=== PATIENT | female | born 1980 | race Caucasian/White ===

== ENCOUNTER 2016-12-12 06:05 | Inpatient (IN) | payer MEDICAID, OTHER ==
--- NOTE | 2016-12-07 23:34 | PREOPHP ---
DATE OF ADMISSION: 12/12/2016 REASON FOR ADMISSION: The patient is coming on 12/13/2015 for a hysterectomy. HISTORY OF PRESENT ILLNESS: This is a 36-year-old female 2, para 2 with 2 previous sections, hysteroscopy with an attempted ablation, pelviscopy, tubal ligation, D and C again for ex cessive bleeding, and she had bilateral salpingectomy. This patient has been suffering from fibroid uterus, intractable pelvic pain, intractable bleeding, and a large fibroid uterus. She underwent a pelviscopy that revealed that she has fibroids and endometriosis as well, very boggy uterus, and hy drosalpinx that were removed. The patient had both tubes removed because of large hematometra and a denomyosis and bilateral hydrosalpinx. She still continues with excessive bleeding. The patient maradiaga s also, on top of that, severe pelvic pain that interferes with her sexual life and she has been raphael ble to have sex due to pain. The patient was not able to take CONTROL PILLS SINCE SHE HAS INT OLERANCE TO THAT and she will not keep an IUD. She had also difficulties with the IUD before. She is requesting for more permanent treatment of her bleeding and pain. She was advised for a hysterec triston since she had no means of getting . She did not want to have any more children. That is why she had her tubal ligation and she is adamant about having a hysterectomy. ALLERGIES: THE PATIENT WAS ALLERGIC TO PENICILLIN. PAST MEDICAL HISTORY: She, on her past history, had the Depo shot several times to try to control h er bleeding with intolerance to that as well. She would not go on Lupron because she knows the prob ruthann will come back. The patient has been anemic ____ with her normal life due to the problems of an emia and heavy bleeding she is constantly fearing her next period. The patient is advised for a tot al abdominal hysterectomy. REVIEW OF SYSTEMS: Negative for cardiovascular disease. Negative for heart disease, lung disease, GI, endocrine disease. SOCIAL HISTORY: She has no history of drugs. She does not drink or smoke. FAMILY HISTORY: Noncontributory. MEDICATIONS: She is on vitamins and Microgestin and a recent Depo shot. PHYSICAL EXAMINATION: VITAL SIGNS: The patient is 5 feet 3 inches. She weighs 164. Her blood pressure is 120/80. HEAD AND NECK: Normal. CHEST: Clear. HEART: Normal sinus rhythm. LUNGS: Clear. BREASTS: Soft, nontender. No masses. ABDOMEN: Soft, nontender. No masses. PELVIC: Uterus with adenomyosis and fibroids, very painful, very difficult to evaluate. Adnexae ar e nonpalpable. Uterus with motion tenderness. RECTAL: Negative. VASCULAR: The pulses are normal. EXTREMITIES: Normal. DIAGNOSES: 1. Intractable pelvic pain and bleeding. 2. Large fibroid uterus. 3. Adenomyosis. 4. Anemia. 5. Previous sections x2. PLAN: She is undergoing a total abdominal hysterectomy. She has been advised of the possible risks and possible complications of the procedure with her alternatives and options. Written information was provided. She had no more questions and agreed to go ahead with the procedure with full unders tanding and no more questions. Dictated By: LUIS ENRIQUE TUCKER/ISREAL Conf#: [id number] DID#: [id number]
[~2016-12-12] VITALS: Ht 160 cm; Wt 73.6 kg
[2016-12-12] VITALS (21 sets, daily range): BP systolic 109–122; BP diastolic 57–72; PULSE 68–96; RESP 11–24; Ht 160 cm; Wt 73.6 kg
[~2016-12-12 06:05] MED LIST: ACET500T98 PO; CLINDAMYCIN 900 MG/D5W (PMX) 50 ML IVPB ONE; IBUP200C11 PO; NORG1TAB54 PO
[2016-12-12] MEDS ORDERED: ROCURONIUM 50 MG INJ ONE (07:38)
[2016-12-12] MEDS ORDERED: morphine SULFATE/PF (10 MG/10 ML) INJ ONE (07:38)
[2016-12-12] MEDS ORDERED: MIDAZOLAM 1 MG/ML 2 ML INJ ONE (07:38)
[2016-12-12] MEDS ORDERED: PROPOFOL 20 ML ONE (07:38)
[2016-12-12] MEDS ORDERED: LIDOCAINE 1% (MDV) 20 ML INJ ONE (07:39)
[2016-12-12] MEDS ORDERED: FENTAnyl 50 MCG/ML VIAL ONE (07:44)
--- NOTE | 2016-12-12 08:06 | HPN ---
Date/Time of Note Date/Time of Note DATE: 12/12/16 TIME: 08:02 Interval H&P Admission Note Pt. seen H&P reviewed: No system changes LUIS ENRIQUE SCHMIDT MD December 12, 2016 08:06
[2016-12-12] MEDS ORDERED: EPHEDrine SULFATE 50 MG/5 ML SYG ONE (08:39)
[2016-12-12] MEDS ORDERED: DEXAMETHASONE 4 MG/ML 1 ML INJ ONE (08:52)
[2016-12-12] MEDS ORDERED: ONDANSETRON 4 MG INJ ONE (08:52)
[2016-12-12] MEDS ORDERED: FAMOTIDINE 20 MG INJ ONE (08:52)
[2016-12-12] MEDS ORDERED: HYDROmorphONE 1 MG/ML SYG IV PRN ×2 (09:00)
[2016-12-12] MEDS ORDERED: PROCHLORPERAZINE 10 MG INJ IV PRN (09:00)
[2016-12-12] MEDS ORDERED: HYDROmorphONE (0.2 MG/ML) 10ML SYG IV PRN (09:00)
[2016-12-12] MEDS ORDERED: ZOLPIDEM 5 MG TAB PO PRN ×2 (09:00→10:30)
[2016-12-12] MEDS ORDERED: MEPERIDINE 25 MG INJ IV PRN (09:00)
[2016-12-12] MEDS ORDERED: ONDANSETRON 4 MG INJ IV PRN ×3 (09:00→10:30)
[2016-12-12] MEDS ORDERED: NALOXONE (0.4 MG/ML) INJ IV PRN (09:00)
[2016-12-12] MEDS ORDERED: KETOROLAC 30 MG INJ IV PRN (09:00)
[2016-12-12] MEDS ORDERED: DIPHENHYDRAMINE 50 MG INJ IV PRN ×2 (09:00)
[2016-12-12] MEDS ORDERED: GLYCOPYRROLATE 0.4 MG INJ ONE (10:15)
[2016-12-12] MEDS ORDERED: NEOSTIGMINE 3 MG/3 ML SYRINGE ONE (10:15)
[2016-12-12] MEDS ORDERED: DIPHENHYDRAMINE 50 MG CAP PO PRN (10:30)
[2016-12-12] MEDS ORDERED: BISACODYL (EC) 5 MG TAB PO PRN (10:30)
[2016-12-12] MEDS ORDERED: HYDROCODONE/APAP (5/325) TAB PO PRN (10:30)
--- NOTE | 2016-12-12 10:48 | OPR ---
Date/Time of Note Date/Time of Note DATE: 12/12/16 TIME: 10:42 Operative Report Procedure Date: December 12, 2016 Preoperative Diagnosis INTRACTABLE MENOMETRORRHAGIA AND PELVIC PAIN FIBROID UTERUS ADENOMYOSIS Postoperative Diagnosis SAME PLUS PELVIC ADHESIONS Operation Performed JL LYSIS OF ADHESIONS Surgeon: LUIS ENRIQUE SCHMIDT MD Bus Boy: JORGE DELA CRUZ MD Anesthesia: general Anesthesiologist: RANDI IBRAHIM DO Estimated Blood Loss: 100 - 150 ml's Specimens UTERUS Tubes/Drains JOSY DRAIN Complications: None Pt Condition Post Procedure: stable Disposition: PACU LUIS ENRIQUE SCHMIDT MD December 12, 2016 10:48
[2016-12-12] MEDS: KETOROLAC 30 MG INJ IV SCH ×3 (11:06→22:00)
--- NOTE | 2016-12-12 11:26 | OPR ---
DATE OF OPERATION: 12/12/2016 PROCEDURE: 1. Total abdominal hysterectomy. 2. Lysis of adhesions. PREOPERATIVE DIAGNOSES: 1. Intractable menometrorrhagia. 2. Intractable pelvic pain. 3. Fibroid uterus of adenomyosis of the uterus. POSTOPERATIVE DIAGNOSES: 1. Intractable menometrorrhagia. 2. Intractable pelvic pain. 3. Fibroid uterus of adenomyosis of the uterus. 4. Pelvic adhesions. PROCEDURE DONE: 1. Total abdominal hysterectomy. 2. Lysis of adhesions. SURGEON: Luis Enrique Morris MD CENTER MGR: Jag Ivan MD ANESTHESIA: Terrance Calhoun DO BLOOD LOSS: 100 mL. COMPLICATIONS: None. PROCEDURE: The patient was given spinal and Duramorph anesthesia and general anesthesia, placed in the supine position. A Medina catheter was placed in the bladder. The abdomen was prepped and drape d and a transverse incision going through the previous old scar from the was made. The ab domen was opened in layers without difficulties. The abdominal cavity was reached. The omentum was adherent with adhesions that were lysed with [id number] sutures with pop-off 0-Vicryl. The om entum was from the anterior abdominal wall. The exploration of the pelvic area revealed t hat the uterus was very boggy with a fibroid of the possible 6 cm and very boggy appearance of the u terus with adenomyosis. In the surface of the uterus there were adhesions, possibly from endometrio sis and possibly from PID as well. Both tubes were absent from removal of the tubes through the pel viscopy done before and both ovaries were normal. The self-retaining retractor was placed and the L ahey was used to grab the uterus. The uterus was removed slowly by using bipolar instrument with a LigaSure to the round ligaments to the ovarian ligament and the uterine vessels. The anterior broad ligament was incised and the bladder flap was made, lysing the adhesion of the uterus to the bladde r that was intense and very severe. The bladder was pushed down. At this level, the uterine vessel s were cauterized with the LigaSure and a straight Rahat's and a straight Heaneys were used to get the cardinal ligaments and uterosacral ligaments. An incision was done in both sides and figure-of- eight sutures with #1 Vicryl with good hemostasis. The sutures were held. At this time, the Metzenbaum was used with the Nunez scissors to incise the vaginal cuff and with the Zaida scissors, the uterus was removed and the cervix. The corners of the vagina were held and the whole vagina was closed with [id number]-[id number] sutures to the corners and interrupted sutures wit h #1 Vicryl and hemostasis was good. The cavity was looked at under water and there was no active b leeding. The ureters were tacked down with good peristalsis and away from our stumps of sutures. T he bottom of the bladder was cauterized as well for some venous bleeding and a piece of Surgicel was left in there. Both ovaries were covered with Interceed for prevention of adhesions and the perito neum was closed with a 2-0 Vicryl suture. The fascia was closed with PDS looped suture. We left a drain because of the thickness of the subcutaneous tissue that was thick to prevent the seroma forma tion. The John drain was placed, making a small incision on the left side 5 cm up above the corner of the incision with a knife. The incision was made and a clamp was used to bring the tube out. T he tube was fixed to the skin with a single stitch with 2-0 nylon. The piece of EpiFix, which is pl acental tissue that is being used for healing was left just underneath the area of the skin for good healing. The approximation of the subcutaneous tissue was done without stitches and the subq was w ith no active bleeding. The skin was closed with 3-0 Monocryl subcuticular stitch. Steri-Strips were applied with Dermabond and the patient tolerated the procedure well and left the OR awake and stable. Sponge counts, inst rument counts were correct. Intravenous antibiotics were given for prophylaxis. Blood loss was min imal. The urine was clear at the end of the procedure. Dictated By: LUIS ENRIQUE TUCKER/ISREAL Conf#: [id number] DID#: [id number]
[2016-12-12] MEDS: HYDROmorphONE 1 MG/ML SYG IV PRN (11:28)
[2016-12-12] MEDS: METOCLOPRAMIDE 10 MG TAB PO SCH ×2 (14:14→17:15)
[2016-12-12] MEDS: LACTATED RINGER'S 1,000 ML IV SCH ×2 (14:15→18:22)
[2016-12-12] MEDS: CLINDAMYCIN 600 MG/D5W (PMX) 50 ML IVPB SCH ×2 (14:24→17:13)
[2016-12-13] MEDS: LACTATED RINGER'S 1,000 ML IV SCH ×4 (00:17→20:54)
[2016-12-13] MEDS: CLINDAMYCIN 600 MG/D5W (PMX) 50 ML IVPB SCH ×4 (00:17→17:40)
[2016-12-13] MEDS: METOCLOPRAMIDE 10 MG TAB PO SCH ×4 (00:18→17:38)
[2016-12-13 05:21] LABS: ADD SCAN DIFF NO
[2016-12-13] MEDS: KETOROLAC 30 MG INJ IV SCH ×4 (05:21→22:28)
[2016-12-13 05:32] LABS: BASOPHILS % 0.2 % (0.0-2.0); HEMOGLOBIN 9.9 g/dl (12.0-16.0); LYMPHOCYTES % 10.7 % (15.0-51.0); MEAN CORPUSCULAR HEMOGLOBIN 26.6 pg (29.0-33.0); MEAN CORPUSCULAR HGB CONC 31.9 g/dl (32.0-37.0); MEAN CORPUSCULAR VOLUME 83.3 fl (82.0-101.0); MEAN PLATELET VOLUME 10.6 fl (7.4-10.4); MONOCYTE # 0.8 10^3/ul (0.3-0.9); NEUTROPHIL # 7.2 10^3/ul (1.6-7.5); NEUTROPHILS % 79.9 % (39.0-77.0); PLATELET COUNT 285 10^3/UL (140-415); RED BLOOD COUNT 3.72 10^6/ul (4.20-5.40); RED CELL DISTRIBUTION WIDTH 18.9 % (11.5-14.5)
[2016-12-13 05:44] LABS: POTASSIUM 3.8 mmol/L (3.5-5.1)
[2016-12-13 05:46] LABS: CREATININE 0.49 mg/dl (0.44-1.00)
[2016-12-13 07:54] VITALS: BP 96/55; RESP 17
[2016-12-13] MEDS: HYDROCODONE/APAP (5/325) TAB PO PRN (09:50)
--- NOTE | 2016-12-13 19:19 | QN ---
Documentation Comment POD #1 Pt is doing well and is good spirits. Ambulating, slowly but surely. Pain management is excellent. Afebrile. VSS. Abdomen soft,non-distended. Incision is clean, dry and intact. Drain with a small amount of dark blood. Ext: NT, no edema. P: Advance diet to regular as she is on a soft diet right now. Continue to encourage ambulation. JORGE DELA CRUZ MD December 13, 2016 19:19
[2016-12-13 20:15] VITALS: BP 114/74; RESP 18
[2016-12-13] MEDS: HYDROmorphONE 1 MG/ML SYG IV PRN (20:54)
[2016-12-14] MEDS: METOCLOPRAMIDE 10 MG TAB PO SCH ×5 (01:01→23:56)
[2016-12-14] MEDS: CLINDAMYCIN 600 MG/D5W (PMX) 50 ML IVPB SCH ×5 (01:01→23:56)
[2016-12-14] MEDS: HYDROCODONE/APAP (5/325) TAB PO PRN ×2 (01:08→08:39)
[2016-12-14] MEDS: KETOROLAC 30 MG INJ IV SCH ×4 (05:11→22:54)
[2016-12-14] MEDS: LACTATED RINGER'S 1,000 ML IV SCH ×3 (06:00→14:55)
[2016-12-14 07:40] VITALS: BP 102/57; RESP 16
[2016-12-14 22:07] VITALS: BP 133/75; RESP 20
[2016-12-14] MEDS: ACETAMINOPHEN 325 MG TAB PO PRN (23:13)
--- NOTE | 2016-12-14 23:49 | QN ---
Documentation Comment POD #2 Pt has good pain control but had a low grade temperature today and is sweating now. Pt received 3 doses of Cleocin post-op and has a drain in now. +flatus and is tolerating a regular diet. T=99.4 BP 133/75 Abdomen soft, NT, non-distended. Incision is clean dry and intact. Drain with bulb with a small amount of clear serosanguinous fluid. No evidence of infection. Extremities non-tender, no edema. A: POD #2 s/p JL. Still has ovaries. Low grade temperature. P: CBC with diff., Chem 7, U/A and culture in AM. Encourage ambulation. Pt had a greater than average amount of antibiotics post-operatively so shouldn' t need more. Bolus 500 cc extra fluid. JORGE DELA CRUZ MD December 14, 2016 23:49
[2016-12-15] MEDS: LACTATED RINGER'S 1,000 ML IV SCH ×2 (04:14→10:22)
[2016-12-15] MEDS: KETOROLAC 30 MG INJ IV SCH (04:26)
[2016-12-15 04:57] LABS: ADD SCAN DIFF NO
[2016-12-15 05:06] LABS: HEMOGLOBIN 10.9 g/dl (12.0-16.0); MEAN CORPUSCULAR HEMOGLOBIN 25.8 pg (29.0-33.0); MEAN CORPUSCULAR HGB CONC 31.1 g/dl (32.0-37.0); MEAN CORPUSCULAR VOLUME 82.7 fl (82.0-101.0); MEAN PLATELET VOLUME 9.9 fl (7.4-10.4); PLATELET COUNT 275 10^3/UL (140-415); RED BLOOD COUNT 4.23 10^6/ul (4.20-5.40); RED CELL DISTRIBUTION WIDTH 19.2 % (11.5-14.5); WHITE BLOOD COUNT 14.6 10^3/ul (4.8-10.8)
[2016-12-15 05:19] LABS: CALCIUM 9.2 mg/dl (8.4-10.2); CREATININE 0.52 mg/dl (0.44-1.00); POTASSIUM 3.3 mmol/L (3.5-5.1)
[2016-12-15] MEDS: CLINDAMYCIN 600 MG/D5W (PMX) 50 ML IVPB SCH ×2 (05:24→12:20)
[2016-12-15] MEDS: METOCLOPRAMIDE 10 MG TAB PO SCH ×2 (05:25→12:20)
[2016-12-15] MEDS ORDERED: LACTATED RINGER'S 500 ML IV ONE (06:00)
[2016-12-15 08:42] VITALS: BP 106/58; RESP 17
[2016-12-15 12:14] LABS: OVALOCYTES OCCASIONAL
[2016-12-15 12:15] LABS: LYMPHOCYTES # 0.4 10^3/ul (0.8-2.9); MONOCYTE # 0.1 10^3/ul (0.3-0.9); NEUTROPHIL # 12.7 10^3/ul (1.6-7.5)
[2016-12-15] MEDS: ACETAMINOPHEN 325 MG TAB PO PRN (12:29)
[2016-12-15] MEDS ORDERED: POTASSIUM CHLORIDE (SR) 10 MEQ TAB PO SCH (13:15)
[2016-12-15 13:51] LABS: ADD UMIC YES; URINE BILIRUBIN (Dip) NEGATIVE (NEGATIVE); URINE BLOOD (Dip) 3+ (NEGATIVE); URINE COLOR LT. YELLOW (YELLOW); URINE GLUCOSE (Dip) NEGATIVE (NEGATIVE); URINE KETONES (Dip) 40 (NEGATIVE); URINE LEUKOCYTE ESTERASE (Dip) NEGATIVE (NEGATIVE); URINE NITRITE (Dip) NEGATIVE (NEGATIVE); URINE TOTAL PROTEIN (Dip) 1+ (NEGATIVE); URINE UROBILINOGEN (Dip) 0.2 E.U./dL (0.1-1.0)
[2016-12-15 14:14] LABS: SQUAMOUS EPITHELIAL CELL,UR FEW; URINE RBCS >50 /HPF (0)
--- NOTE | 2016-12-15 15:00 | PD.PPDC ---
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
--- NOTE | 2016-12-15 18:21 | DS ---
DATE OF ADMISSION: 12/12/2016 DATE OF DISCHARGE: 12/15/2016 PREOPERATIVE DIAGNOSIS: Intractable pelvic pain and bleeding. POSTOPERATIVE DIAGNOSES: With fibroid uterus, adenomyosis of the uterus, and endometrial polyps, be nign. HISTORY: This is a 36-year-old female 2, para 2, with 2 previous sections, and hys teroscopy with attempted ablation pelviscopy and tubal ligation, D and C. Had been seeing me before for bilateral salpingectomy due to large hydrosalpinx. This patient was advised for a hysterectomy due to fibroid that was intractable for pelvic pain and bleeding with growing fibroids, anemia, and she had been treated medically without success. The patient underwent an exploratory laparotomy wi [facility] and the pathology findings were benign. The patient did well after surgery and her laborator y testing showed a hemoglobin of 10.9, hematocrit of 35. She had been given antibiotics due to a mi ld UTI that was treated preop and she was to finish her antibiotics at home. She had no complaints. She had incisional drainage that was removed at the time of discharge. She had a clean incision. She had been ambulatory, passing gases with bowel movement, voiding well, eating well, and she had no complaints and she had no problems. She wanted to go home. She was discharged stable in good co ndition with instructions of what to do and not to do at home, to take ibuprofen and Delta p.r.n., a nd also to call if she had any problems. Otherwise, she will see me in the office in 3 days for elsie ckup on her incision. The patient was stable in good condition. FINAL DIAGNOSES: 1. Fibroid uterus. 2. Intractable pelvic pain and bleeding. 3. Adenomyosis of the uterus. 4. Anemia. Dictated By: LUIS ENRIQUE TUCKER/NTS Conf#: [id number] DID#: [id number]
== END 2016-12-15 17:38 | disposition home or self-care (01) | DRG 742 ==
LOC: REC 06:05 → PP2 13:19
PROVIDERS: ADMIT Obstetrics & Gynecology; ATTEND Obstetrics & Gynecology
PROC: 0UTC0ZZ Resection of Cervix, Open Approach (ICD-10-PCS; 2016-12-12)
PROC: 0UN90ZZ Release Uterus, Open Approach (ICD-10-PCS; 2016-12-12)
PROC: 3E0P05Z Introduction of Adhesion Barrier into Female Reproductive, Open Approach (ICD-10-PCS; 2016-12-12)
PROC: 0UT90ZZ Resection of Uterus, Open Approach (ICD-10-PCS; principal; 2016-12-12 07:30)
DX: D25.1 Intramural leiomyoma of uterus (principal); N39.0 Urinary tract infection, site not specified; N80.0 Endometriosis of uterus; N92.1 Excessive and frequent menstruation with irregular cycle; N73.6 Female pelvic peritoneal adhesions (postinfective); D64.9 Anemia, unspecified
CPT/HCPCS: 80048; 80051; 81001; 81003; 82565; 84520; 85025; 86850; 86900; 86901; 86920; 87086; 88305; J1100; J1170; J1885; J2250; J2274; J2405; J2710; J3010; J7120; Q4131

== ENCOUNTER 2016-12-26 19:50 | Emergency (ER) | payer OTHER ==
[~2016-12-26] VITALS: Ht 160 cm; Wt 73.0 kg
[~2016-12-26 19:50] MED LIST changes: -CLINDAMYCIN 900 MG/D5W (PMX) 50 ML IVPB ONE
[2016-12-26 20:16] VITALS: Ht 160 cm; Wt 73.0 kg
--- NOTE | 2016-12-26 21:31 | ERD ---
ER Documentation Chief Complaint Date/Time DATE: 12/26/16 TIME: 21:29 Chief Complaint procedure done 2 weeks ago, fever x 2 days; pain at the incision site HPI This 36-year-old female presents to the emergency department with fever, abdominal pain, and foul-smelling vaginal discharge. Patient is status post hysterectomy here at [facility] 2 weeks ago. Patient reports fever started 2 days ago. T-max 102.0 yesterday using ibuprofen last taken at 1400. Patient states she has been using her 800 mg ibuprofen that was prescribed for pain. Patient denies pain at this time. She states her lower abdomen feels hot, denies any drainage or dehiscence from surgical incision site. Patient denies nausea, vomiting, shortness of breath. ROS All systems reviewed and are negative except as per history of present illness. Medications Home Meds Reported Medications Ibuprofen* (Advil*) 200 Mg Capsule, PO Q6 06/28/12 Acetaminophen (Tylenol) 500 Mg Tab, PO Q4 06/28/12 Norgestimate-Ethinyl Estradiol (Ortho Tri-Cyclen Lo) 7 Daysx 3 Lo Tablet, PO DAILY 06/28/12 Allergies Allergies: Coded Allergies: Penicillins (Verified Allergy, Mild, RASH, 06/28/12) PMhx/Soc History of Surgery: Yes (TUBAL LIG D AND C , [facility] 12/2016) Anesthesia Reaction: Yes (VOMITING) Hx Neurological Disorder: No Hx Respiratory Disorders: No Hx Cardiac Disorders: Yes (POSSIBLY HTN --OCC) Hx Psychiatric Problems: No Hx Miscellaneous Medical Probl: No Hx Alcohol Use: No Hx Substance Use: No Hx Tobacco Use: No Smoking Status: Never smoker Physical Exam Vitals Vital Signs Date Time Temp Pulse Resp B/P Pulse Ox O2 Delivery O2 Flow Rate FiO2 12/26/16 20:16 98.3 83 18 134/75 100 Physical Exam Const: No acute distress Head: Atraumatic Eyes: Normal Conjunctiva, PERRLA, EOMI ENT: Normal External Ears, Nose and Mouth. Mucous membranes moist Neck: Resp: Chest rise and fall symmetrically, clear to auscultation bilaterally no respiratory Cardio: Regular rate and rhythm, no murmurs Pelvic Exam: Glass Presser present Abdomen: Mild tenderness. Patient has a horizontal surgical incision bikini cut, approximated with Steri-Strips in place External Genitalia: Normal Skin Speculum: Normal vaginal mucosa, vaginal discharge purulent blood -tinged Bimanual: Not done, status post hysterectomy 2 weeks ago. Skin: Back: No midline or flank tenderness Ext: Neur: Awake and alert Psych: Normal Mood and Affect Result Diagram: 12/26/16212912/26/162129 Results 24 hrs Laboratory Tests Test 12/26/16 21:15 12/26/16 21:30 Urine Color LT. YELLOW Urine Clarity SLIGHTLY CLOUDY Urine pH 5.5 Urine Specific [place] <=1.005 Urine Ketones NEGATIVE Urine Nitrite NEGATIVE Urine Bilirubin NEGATIVE Urine Urobilinogen 0.2 E.U./dL Urine Leukocyte Esterase 3+ Urine Microscopic RBC 10-25/HPF Urine Microscopic WBC >200/HPF Urine Squamous Epithelial Cells MODERATE Urine Bacteria MANY Urine Hemoglobin 3+ Urine Glucose NEGATIVE% Urine Total Protein NEGATIVE White Blood Count 8.410^3/ul Red Blood Count 4.1910^6/ul Hemoglobin 10.8g/dl Hematocrit 34.4% Mean Corpuscular Volume 82.1fl Mean Corpuscular Hemoglobin 25.8pg Mean Corpuscular Hemoglobin Concent 31.4g/dl Red Cell Distribution Width 18.4% Platelet Count 06889^3/UL Mean Platelet Volume 8.8fl Neutrophils % 68.0% Band Neutrophils % 2.0% Lymphocytes % 23.0% Monocytes % 6.0% Eosinophils % 1.0% Neutrophils # 5.710^3/ul Lymphocytes # 1.910^3/ul Monocytes # 0.510^3/ul Eosinophils # 0.110^3/ul Platelet Estimate PLT APPEAR INCREASED Sodium Level 138mmol/L Potassium Level 4.1mmol/L Chloride Level 101mmol/L Carbon Dioxide Level 27mmol/L Anion Gap 14 Blood Urea Nitrogen 10mg/dl Creatinine 0.51mg/dl Glucose Level 117mg/dl Calcium Level 10.0mg/dl Total Bilirubin 0.0mg/dl Direct Bilirubin 0.00mg/dl Indirect Bilirubin 0.0mg/dl Aspartate Amino Transf (AST/SGOT) 40IU/L Alanine Aminotransferase (ALT/SGPT) 44IU/L Alkaline Phosphatase 212IU/L Total Protein 8.6g/dl Albumin 4.0g/dl Globulin 4.60g/dl Albumin/Globulin Ratio 0.86 Procedures/MDM This 36-year-old female presents to the emergency department 2 weeks after hysterectomy with complaints of dysuria, and purulent vaginal discharge. Patient reports fever, T-max 102.0 today treating with 800 mg of Motrin. Patient denies back pain, nausea, vomiting, chills. No abdominal laceration approximated with Steri-Strips without erythema, he was slightly erythemic. Differential diagnosis includes but not limited to sepsis, urinary tract infection, pyelonephritis postoperative infection. Patient is denying any pain at this time, serology testing; CBC shows no evidence of hemorrhage or infection , Chemistry shows no evidence of significant electrolyte abnormalities or renal insufficiency, urinalysis positive for leukocytosis, bacteremia, and microscopic hematuria, findings consistent with urinary tract infection. Pelvic exam reveals purulent pink tinted discharge, cultures obtained. Dr Ann, on-call laborist called notified of patient's vision to emergency room , case discussed, physician recommends routine treatment of urinary tract infection, vaginal discharge is likely noninfectious drainage from hysterectomy. Patient to follow-up in office tomorrow. Patient will be prescribed Keflex 500 mg 3 times daily 7 days. Continue ibuprofen, return to emergency department for worsening of symptoms, fever, nausea vomiting, chills, chest pain, palpitations. Shortness of breath. I feel the patient is stable for discharge at this time and outpatient management by GRAIN ELEVATOR WORKER. I have discussed results, examination findings, the treatment plan with the patient and family present prior to discharge. Indications for emergent reevaluation, side effects of medication were also discussed. All questions were answered. Patient verbalizes understanding and agrees with plan of care. Departure Diagnosis: Primary Impression: UTI (urinary tract infection) Urinary tract infection type: site unspecified Hematuria presence: with hematuria Qualified Code: N39.0 - Urinary tract infection with hematuria, site unspecified Condition: Good Patient Instructions: Understanding Urinary Tract Infections (UTIs) Additional Instructions: Thank you for for coming to [facility] for your care today. Please ask your nurse or provider if you have questions about your care today and do not leave until all your questions have been answered. Please use any medications given as directed and follow-up with your doctor (or the doctor you were referred to) in the next 2-3 days. If you do not have a primary care doctor you may follow up at the [facility] (listed below). You may also use motrin and tylenol as needed for fever and/or pain unless instructed otherwise by your provider or nurse. Indications for more urgent follow-up have been discussed, but you may return to the Emergency Department at ANY time for any worrisome or worsening symptoms. If you have abdominal pain, please know that no test or exam you received is perfect and you should follow up within 8 hours for continued pain. If you had any imaging studies today, such as an X-Ray or CT Scan, these studies will be reviewed later by a radiologist. You will be called if there are important findings that were not identified today, so make sure the contact information you provided at registration is correct. If you received any narcotic pain control medicine today, such as Vicodin, Morphine or Dilaudid, your coordination and judgment may be affected for a number of hours. Please do not drive or operate heavy machinery, and you may want someone to assist you at home. If you were given a prescription for narcotic medication, be aware that it is very addictive- use sparingly and only if necessary. LUCY NOLAND December 26, 2016 21:31
[2016-12-26 21:48] LABS: ADD SCAN DIFF NO
[2016-12-26 21:50] LABS: ADD UMIC YES; URINE BILIRUBIN (Dip) NEGATIVE (NEGATIVE); URINE BLOOD (Dip) 3+ (NEGATIVE); URINE COLOR LT. YELLOW (YELLOW); URINE GLUCOSE (Dip) NEGATIVE (NEGATIVE); URINE KETONES (Dip) NEGATIVE (NEGATIVE); URINE LEUKOCYTE ESTERASE (Dip) 3+ (NEGATIVE); URINE NITRITE (Dip) NEGATIVE (NEGATIVE); URINE TOTAL PROTEIN (Dip) NEGATIVE (NEGATIVE); URINE UROBILINOGEN (Dip) 0.2 E.U./dL (0.1-1.0)
[2016-12-26 21:50] LABS: HEMATOCRIT 34.4 % (37.0-47.0); HEMOGLOBIN 10.8 g/dl (12.0-16.0); MEAN CORPUSCULAR HEMOGLOBIN 25.8 pg (29.0-33.0); MEAN CORPUSCULAR HGB CONC 31.4 g/dl (32.0-37.0); MEAN CORPUSCULAR VOLUME 82.1 fl (82.0-101.0); MEAN PLATELET VOLUME 8.8 fl (7.4-10.4); PLATELET COUNT 818 10^3/UL (140-415); RED BLOOD COUNT 4.19 10^6/ul (4.20-5.40); RED CELL DISTRIBUTION WIDTH 18.4 % (11.5-14.5); WHITE BLOOD COUNT 8.4 10^3/ul (4.8-10.8)
[2016-12-26 22:02] LABS: BACTERIA,URINE MANY; SQUAMOUS EPITHELIAL CELL,UR MODERATE
[2016-12-26 22:10] LABS: ALBUMIN/GLOBULIN RATIO 0.86; CREATININE 0.51 mg/dl (0.44-1.00); POTASSIUM 4.1 mmol/L (3.5-5.1); TOTAL PROTEIN 8.6 g/dl (6.1-8.1)
[2016-12-26 22:41] LABS: EOSINOPHILS # 0.1 10^3/ul (0.0-0.5); LYMPHOCYTES # 1.9 10^3/ul (0.8-2.9); MONOCYTE # 0.5 10^3/ul (0.3-0.9); NEUTROPHIL # 5.7 10^3/ul (1.6-7.5); PLATELET ESTIMATE PLT APPEAR INCREASED
[2016-12-26] MEDS ORDERED: CEPH-443 PO (23:14)
[2016-12-26 23:58] VITALS: BP 128/73; PULSE 76; RESP 18; TEMP 98.9
== END 2016-12-26 23:58 | disposition home or self-care (01) ==
LOC: FTE 19:50
DX: N39.0 Urinary tract infection, site not specified (principal)
CPT/HCPCS: 36415; 80053; 81001; 85025; 87040; 87086; 87210; Z7502; 81003; 99284

== ENCOUNTER 2017-12-26 10:17 | Emergency (ER) | END 2017-12-26 13:19 | disposition home or self-care (01) ==